=== PATIENT | male | born 1955 | race Native Hawaiian/Other Pacific Islander ===

== ENCOUNTER 2020-06-15 10:01 | Outpatient (CLI) | payer BC, OTHER | END 2020-06-15 21:56 | disposition home or self-care (01) | LOC: RAD 10:01 | PROVIDERS: ATTEND Nurse Practitioner Family | DX: J06.9 Acute upper respiratory infection, unspecified (principal); R05 Cough; R50.9 Fever, unspecified ==

== ENCOUNTER 2020-11-23 10:48 | Outpatient (CLI) | payer BC | END 2020-11-23 22:06 | disposition home or self-care (01) | LOC: RAD 10:48 | PROVIDERS: ATTEND Nurse Practitioner Family | DX: M25.532 Pain in left wrist (principal); M25.531 Pain in right wrist ==

== ENCOUNTER 2020-12-14 09:37 | Outpatient (CLI) | payer BC | END 2020-12-14 19:20 | disposition home or self-care (01) | LOC: RAD 09:37 | PROVIDERS: ATTEND Nurse Practitioner Family | DX: N17.9 Acute kidney failure, unspecified (principal); E66.9 Obesity, unspecified; E03.9 Hypothyroidism, unspecified; N18.30 Chronic kidney disease, stage 3 unspecified; I73.9 Peripheral vascular disease, unspecified; R73.03 Prediabetes; M06.9 Rheumatoid arthritis, unspecified; M10.9 Gout, unspecified; M54.9 Dorsalgia, unspecified; I12.9 Hypertensive chronic kidney disease with stage 1 through stage 4 chronic kidney disease, or unspecified chronic kidney disease ==

== ENCOUNTER 2022-04-12 08:55 | Outpatient (CLI) | payer OTHER | END 2022-04-12 19:30 | disposition home or self-care (01) | LOC: RESP 08:55 | PROVIDERS: ATTEND Nurse Practitioner Family | DX: I10 Essential (primary) hypertension (principal); M25.50 Pain in unspecified joint; M54.89 Other dorsalgia; E66.9 Obesity, unspecified; E03.8 Other specified hypothyroidism; R00.1 Bradycardia, unspecified | CPT/HCPCS: 93005 ==

== ENCOUNTER 2022-06-13 08:41 | Outpatient (CLI) | payer OTHER | END 2022-06-13 19:18 | disposition home or self-care (01) | LOC: US 08:41 | PROVIDERS: ATTEND Nurse Practitioner Family | DX: Z00.00 Encounter for general adult medical examination without abnormal findings (principal); Z13.6 Encounter for screening for cardiovascular disorders; Z87.891 Personal history of nicotine dependence; Z09 Encounter for follow-up examination after completed treatment for conditions other than malignant neoplasm ==

== ENCOUNTER 2023-01-26 09:52 | Outpatient (CLI) | payer OTHER | END 2023-01-26 19:41 | disposition home or self-care (01) | LOC: US 09:52 | PROVIDERS: ATTEND Nurse Practitioner Family | DX: I73.9 Peripheral vascular disease, unspecified (principal); M54.89 Other dorsalgia ==